=== PATIENT | female | born 1965 | race American Indian/Alaskan Native ===

== ENCOUNTER 2016-12-11 11:34 | Emergency (ER) | payer BC ==
[2016-12-11] MEDS ORDERED: Iohexol 240 (50 ml) PO STA (13:48)
[2016-12-11] MEDS ORDERED: Sodium Chloride 0.9% 1,000 ML IV STA (13:48)
[2016-12-11] MEDS ORDERED: Sodium Chloride 0.9% 1,000 ML ONE (14:08)
[2016-12-11 14:13] LABS: BASO % 0.4 % (0.0-2.0); EOS % 0.2 % (0.0-4.0); HEMATOCRIT 32.1 % (34.0-47.0); LYMPH # 1.8 K/uL (1.0-4.3); LYMPH % 23.1 % (20.0-40.0); MEAN CORPUSCULAR HEMOGLOBIN 19.6 pg (27.0-31.0); MEAN CORPUSCULAR HGB CONC 28.6 g/dL (33.0-37.0); MONO # 0.5 K/uL (0.0-0.8); MONO % 6.3 % (0.0-10.0); NRBC % 0.1 % (0.0-2.0); RED CELL DISTRIBUTION WIDTH 20.4 % (11.5-14.5); WHITE BLOOD COUNT 7.6 K/uL (4.8-10.8)
[2016-12-11 14:20] LABS: MEAN CELL VOLUME 68.4 fL (81.0-99.0)
[2016-12-11 14:21] LABS: CHLORIDE 103 mmol/L (98-107); POTASSIUM 3.9 mmol/L (3.6-5.2); SODIUM 141 mmol/L (132-148)
[2016-12-11 14:23] LABS: ALB/GLOB RATIO 1.2 (1.0-2.1); AST/SGOT 22 U/L (14-36); BILIRUBIN,TOTAL 0.8 mg/dL (0.2-1.3); CARBON DIOXIDE 26 mmol/L (22-30); GFR AFRICAN-AMERICAN > 60; TOTAL PROTEIN 7.7 g/dL (6.3-8.3)
[2016-12-11 14:24] LABS: ALKALINE PHOSPHATASE 77 U/L (38-126); ALT/SGPT 30 U/L (9-52); BLOOD UREA NITROGEN 15 mg/dL (7-17); CALCIUM 9.3 mg/dl (8.6-10.4); GLUCOSE,RANDOM 90 mg/dL (65-105)
[2016-12-11 14:26] LABS: RBC URINE 3 /hpf (0-3); URINE BACTERIA RARE (<OCC); URINE BILIRUBIN NEGATIVE (NEGATIVE); URINE BLOOD 1+ (NEGATIVE); URINE COLOR Yellow (YELLOW); URINE GLUCOSE (UA) NORMAL (Normal); URINE KETONE NEGATIVE (NEGATIVE); URINE LEUKOCYTE ESTERASE NEG Leu/uL (Negative); URINE PROTEIN NEGATIVE (NEGATIVE); URINE UROBILINOGEN NORMAL mg/dL (0.2-1.0); WBC URINE 1 /hpf (0-5)
[2016-12-11] MEDS ORDERED: Iohexol 240 (50 ml) ONE (15:02)
--- NOTE | 2016-12-11 15:34 | C.PDOC ---
History Of Present Illness 51 y/o female presents to the ED complaining of LLQ abdominal pain x 2-3 weeks. Patient reports history of diverticulitis in 2014 at which time she had a colostomy bag and then had it revered. She also reports hernia repaired twice in the same spot. Patient states that today she is experiencing pain in the same area. She notes that she called her surgeon who told her it was probably post operative pain. Patient states that the pain has been so severe the last couple of days that she called him again and he advised her to come to the ED. Patient denies any fever, chills, vomiting, diarrhea, urinary symptoms, back pain, chest pain, shortness of breath, vaginal bleeding, or other complaints. Time Seen by Provider: 12/11/16 12:42 Chief Complaint (Nursing): Abdominal Pain History Per: Patient History/Exam Limitations: no limitations Onset/Duration Of Symptoms: Days, Gradual, Persistent Current Symptoms Are (Timing): Still Present Location Of Pain/Discomfort: LLQ Radiation Of Pain To:: None Quality Of Discomfort: Burning Recent travel outside of the [place]: No Past Medical History Reviewed: Historical Data, Nursing Documentation, Vital Signs Vital Signs: Last Vital Signs Temp 98.6 F 12/11/16 17:50 Pulse 59 L 12/11/16 17:50 Resp 18 12/11/16 17:50 BP 168/82 H 12/11/16 17:50 Pulse Ox 100 12/11/16 18:24 - Medical History PMH: Anemia, Asthma, Diverticulitis, HTN Surgical History: Hernia Repair, Other Surgeries: colostomy - [facility] Procedures BYPASS SIGMOID COLON TO CUTANEOUS, OPEN APPROACH (08/22/15) COMPUTERIZED TOMOGRAPHY (CT SCAN) OF ABDOMEN AND PELVIS (08/22/15) DRAINAGE OF ABDOMINAL WALL WITH DRAIN DEV, OPEN APPROACH (08/22/15) DRAINAGE OF BLADDER WITH DRAINAGE DEVICE, VIA OPENING (01/20/16) RELEASE LARGE INTESTINE, OPEN APPROACH (08/22/15) RELEASE PERITONEUM, OPEN APPROACH (01/20/16) REPAIR ABDOMINAL WALL, OPEN APPROACH (01/20/16) RESECTION OF SIGMOID COLON, OPEN APPROACH (08/22/15) SUPPLEMENT ABDOMINAL WALL WITH SYNTH SUB, OPEN APPROACH (01/20/16) Family History: States: Unknown Family Hx - Social History Hx Tobacco Use: Yes (former smoker) Hx Alcohol Use: Yes (social) Hx Substance Use: No - Immunization History Hx Tetanus Toxoid Vaccination: No Hx Influenza Vaccination: No Hx Pneumococcal Vaccination: No Review Of Systems Except As Marked, All Systems Reviewed And Found Negative. Constitutional: Negative for: Fever, Chills Cardiovascular: Negative for: Chest Pain Respiratory: Negative for: Shortness of Breath Gastrointestinal: Positive for: Abdominal Pain (LLQ). Negative for: Vomiting, Diarrhea Genitourinary: Negative for: Dysuria, Hematuria, Vaginal Bleeding Musculoskeletal: Negative for: Back Pain Physical Exam - Physical Exam Appears: Non-toxic, No Acute Distress Skin: Normal Color, Warm, Dry Head: Atraumatic, Normacephalic Neck: Normal ROM, Supple Chest: Symmetrical Cardiovascular: Rhythm Regular Respiratory: Normal Breath Sounds, No Rales, No Rhonchi, No Wheezing Gastrointestinal/Abdominal: Soft, Tenderness (LLQ), No Guarding, No Rebound, No Hernia Back: Normal Inspection, No CVA Tenderness Extremity: Normal ROM, No Swelling Neurological/Psych: Oriented x3, Normal Speech, Normal Cognition ED Course And Treatment - Laboratory Results Result Diagrams: 12/11/16 14:08 12/11/16 14:08 O2 Sat by Pulse Oximetry: 100 (ra) Pulse Ox Interpretation: Normal - CT Scan/US CT Abd/Pelvis Other Rad Studies (CT/US): Read By Radiologist, Radiology Report Reviewed CT/US Interpretation: Accession No. : [id number]. Patient Name / ID : THELMA FERNANDEZ / [id number]. Exam Date : 12/11/2016 16:20:20 ( Approved ). Study Comment : Sex / Age : F / 51Y. Creator : TASH KAISER MD. Dictator : TASH KAISER MD. Arterial Embalmer : Sodium Chlorite Operator : TASH KAISER MD. Approver2 : Report Date : 12/11/2016 17:03:35. My Comment : . PROCEDURE: CT Abdomen and Pelvis with contrast. HISTORY: LLQ abdominal pain. COMPARISON: 2015 and 01/20/2016. TECHNIQUE: Multidetector CT scan of the abdomen and pelvis was performed after intravenous administration of contrast. Oral contrast was administered. Coronal and sagittal reformatted images were obtained. Contrast dose: Radiation dose: 100 mL Visipaque. Total exam DLP = 1074.96 mGy-cm. FINDINGS: LOWER THORAX: The lung bases are clear. LIVER: The liver is normal in size. There is homogeneous enhancement. There are small simple cysts, the largest in the left lobe measures 10 mm. GALLBLADDER AND BILE DUCTS: There are no calcified gallstones. PANCREAS: Normal in size and homogeneous perfusion. No gross lesion or ductal dilatation. SPLEEN: Normal in size without focal lesion. ADRENALS: Both adrenal glands are normal in size. No discrete nodule. KIDNEYS AND URETERS: Both kidneys are normal in size and there is homogeneous enhancement. There are small cortical cysts in both kidneys. VASCULATURE: Normal appearance. No aortic aneurysm. BOWEL: The small bowel loops are normal in caliber. There are postsurgical changes of partial sigmoid colon resection with reanastomosis. There is moderate amount of stool in the colon. There is no evidence of bowel dilatation or obstruction. The appendix is normal in caliber and there is intraluminal air without surrounding inflammatory changes. Abort. PERITONEUM: No free fluid. No free air. LYMPH NODES: Unremarkable. No enlarged lymph nodes. BLADDER: Decompressed. REPRODUCTIVE: There is an enlarged lobular uterus and fluid in the endometrial cavity. There are probable small simple cysts in both ovaries. BONES: No acute fracture. Within normal limits for the patient's age. OTHER FINDINGS: There is small fat containing umbilical hernia and probable scar tissue in the deep lower abdominal wall. IMPRESSION: 1. Status post partial sigmoid colon resection, no evidence of diverticulosis, bowel dilatation or obstruction. No CT evidence for acute appendicitis. 2. Lobular uterus enlarged for postmenopausal status and suspected are fibroids. Also noted is fluid in the endometrial cavity. Suspect small simple cysts in both ovaries. A dedicated pelvic ultrasound is recommended for further evaluation. Progress Note: CT Abd/Pelvis, blood work, urinalysis, and urine HCG were ordered. Patient was treated with IV fluids. On reevaluation, patient reports improvement of abdominal pain. Patient is resting comfortably, abdomen remains soft, and patient is tolerating PO. Patient feels comfortable going home. Patient discharged home and instructed to follow up with physician/clinic in 1- 2 days for further evaluation or return to ED if symptoms persist or worsen. Disposition - Disposition Disposition: HOME/ ROUTINE Disposition Time: 18:09 Condition: STABLE Additional Instructions: Follow up with PMD/DYNAMO REPAIRER within 1-2 days. Return to ED if feel worse. Instructions: Abdominal Pain (ED), Uterine Fibroids (ED) - Clinical Impression Clinical Impression: Abdominal pain, Fibroid uterus - PA / FINAL TESTER / Resident Statement MD/DO has reviewed & agrees with the documentation as recorded. - Scribe Statement The provider has reviewed the documentation as recorded by the Scribe (Zaira Mcpherson) All medical record entries made by the Scribe were at my direction and personally dictated by me. I have reviewed the chart and agree that the record accurately reflects my personal performance of the history, physical exam, medical decision making, and the department course for this patient. I have also personally directed, reviewed, and agree with the discharge instructions and disposition.
[2016-12-11] MEDS ORDERED: Iohexol 350mgl/ml 50 ML ONE (16:10)
[2016-12-11] MEDS ORDERED: Iohexol 350mg/ml 100 ML ONE (16:11)
--- NOTE | 2016-12-11 17:05 | CT ---
PROCEDURE: CT Abdomen and Pelvis with contrast HISTORY: LLQ abdominal pain COMPARISON: 01/23/2016 and 01/20/2016 TECHNIQUE: Multidetector CT scan of the abdomen and pelvis was performed after intravenous administration of contrast. Oral contrast was administered. Coronal and sagittal reformatted images were obtained. Contrast dose: Radiation dose: 100 mL Visipaque. Total exam DLP = 1074.96 mGy-cm. FINDINGS: LOWER THORAX: The lung bases are clear. LIVER: The liver is normal in size. There is homogeneous enhancement. There are small simple cysts, the largest in the left lobe measures 10 mm. GALLBLADDER AND BILE DUCTS: There are no calcified gallstones. PANCREAS: Normal in size and homogeneous perfusion. No gross lesion or ductal dilatation. SPLEEN: Normal in size without focal lesion. ADRENALS: Both adrenal glands are normal in size. No discrete nodule. KIDNEYS AND URETERS: Both kidneys are normal in size and there is homogeneous enhancement. There are small cortical cysts in both kidneys. VASCULATURE: Normal appearance. No aortic aneurysm. BOWEL: The small bowel loops are normal in caliber. There are postsurgical changes of partial sigmoid colon resection with reanastomosis. There is moderate amount of stool in the colon. There is no evidence of bowel dilatation or obstruction. The appendix is normal in caliber and there is intraluminal air without surrounding inflammatory changes. Abort PERITONEUM: No free fluid. No free air. LYMPH NODES: Unremarkable. No enlarged lymph nodes. BLADDER: Decompressed. REPRODUCTIVE: There is an enlarged lobular uterus and fluid in the endometrial cavity. There are probable small simple cysts in both ovaries. BONES: No acute fracture. Within normal limits for the patient's age. OTHER FINDINGS: There is small fat containing umbilical hernia and probable scar tissue in the deep lower abdominal wall. IMPRESSION: 1. Status post partial sigmoid colon resection, no evidence of diverticulosis, bowel dilatation or obstruction. No CT evidence for acute appendicitis. 2. Lobular uterus enlarged for postmenopausal status and suspected are fibroids. Also noted is fluid in the endometrial cavity. Suspect small simple cysts in both ovaries. A dedicated pelvic ultrasound is recommended for further evaluation.
[2016-12-11 17:29] VITALS: O2SAT 100
[2016-12-11 17:56] VITALS: BP 168/82; PULSE 59; RESP 18; TEMP 98.6
== END 2016-12-11 18:17 | disposition home or self-care (01) ==
LOC: C.ER 11:34
DX: D25.9 Leiomyoma of uterus, unspecified (principal); R10.32 Left lower quadrant pain
CPT/HCPCS: 74177; 80053; 81001; 83690; 84703; 85025; 99285; J7040; Q9966; Q9967

== ENCOUNTER 2017-03-20 09:11 | Day surgery (SDC) | payer BC, OTHER ==
[2017-03-18 08:14] VITALS: BMI 32.8
[2017-03-20 10:11] LABS: BASO % 0.6 % (0.0-2.0); EOS # 0.1 K/uL (0.0-0.7); EOS % 1.3 % (0.0-4.0); HEMOGLOBIN 10.1 g/dL (11.0-16.0); LYMPH # 1.6 K/uL (1.0-4.3); LYMPH % 30.8 % (20.0-40.0); MEAN CORPUSCULAR HEMOGLOBIN 22.4 pg (27.0-31.0); MEAN CORPUSCULAR HGB CONC 29.9 g/dL (33.0-37.0); MEAN PLATELET VOLUME 9.8 fL (7.2-11.7); MONO # 0.3 K/uL (0.0-0.8); MONO % 5.9 % (0.0-10.0); NEUT # 3.2 K/uL (1.8-7.0); NEUT % 61.4 % (50.0-75.0); RBC 4.51 Mil/uL (3.80-5.20); RED CELL DISTRIBUTION WIDTH 25.5 % (11.5-14.5); WHITE BLOOD COUNT 5.2 K/uL (4.8-10.8)
[2017-03-20 10:19] LABS: BLOOD UREA NITROGEN 7 mg/dL (7-17); GFR AFRICAN-AMERICAN > 60; GFR NON-AFRICAN AMERICAN > 60
[2017-03-20 10:20] LABS: CALCIUM 9.1 mg/dl (8.6-10.4); MEAN CELL VOLUME 75.1 fL (81.0-99.0)
[2017-03-20] MEDS ORDERED: Lactated Ringer's 1,000 ML IV ONE ×2 (10:46)
[2017-03-20] MEDS: cefOXitin IV 1 gm in Dextrose 1 GM/50 ML BAG IVPB ONE ×2 (10:47→11:00)
[2017-03-20] MEDS ORDERED: Midazolam 2 MG/2 ML VIAL ONE (10:55)
[2017-03-20] MEDS ORDERED: Propofol 10 mg/ml Inj (20 ML) ONE (10:55)
[2017-03-20 11:52] VITALS: O2SAT 100
[2017-03-20] MEDS: HYDROmorphone 0.5 mg/0.5 ml ISec IVP PRN ×2 (12:00→12:21)
--- NOTE | 2017-03-20 16:03 | PCM.SURG1 ---
Surgeon's Initial Post Op Note - Surgeon's Notes Surgeon: dr srivastava Registered Physical Therapist: none Type of Anesthesia: General LMA Anesthesia Administered By: dr srivastava Pre-Operative Diagnosis: 51 yr wit menometorrhagia/anemia Operative Findings: see the op reoprt Post-Operative Diagnosis: same Operation Performed: novasure/d&c, hyterscopy Specimen/Specimens Removed: ecc. emc Estimated Blood Loss: EBL {In ML}: 20 Blood Products Given: N/A Drains Used: No Drains Post-Op Condition: Good Date of Surgery/Procedure: 03/20/17 Time of Surgery/Procedure: 11:00
[2017-03-20 16:23] VITALS: BP 142/79; PULSE 64; RESP 20; TEMP 97.9
--- NOTE | 2017-03-22 09:13 | PCM.OP ---
Operative Report - Operative Report Date of Surgery/Procedure: 03/20/17 Time of Surgery/Procedure: 12:35 Surgeon: dr srivastava Garnett Machine Operator: moriah Anesthesia/Sedation: dr srivastava/ with LMA Pre-Operative Diagnosis: 51 yr with menometorrhagia/anemia Post-Operative Diagnosis: same Indication for Surgery: menomettorhagia/anemia. failed medical management Operative Findings: after informed consent sterle spec inserted. ut 6 week size. ant lip of cervoix grasped with ten. gentle dilation done. hystersvcopy introduced.currtae donee on all wall. small tissue. ecc done. cervix 4 cm. ut 10 cm. cavity lengh 6 cm.decision to novasure. width was 4.2 cm . after cavity assesementablation done for 120 sec. novasure removed.tenaculum removed. pt tolerated it the proced. no com Procedure/Operation Description: novasure andometral ablation/d&c, hysterscpy Estimated Blood Loss: 20 Sponge/Instrument Count: correct Complications: none Specimen: ecc. emc Discharge & Condition: stable
== END 2017-03-20 16:00 | disposition home or self-care (01) ==
LOC: C.OPSURG 09:11 → C.SDS 09:11
PROVIDERS: ATTEND Obstetrics & Gynecology
DX: N92.1 Excessive and frequent menstruation with irregular cycle (principal); D50.0 Iron deficiency anemia secondary to blood loss (chronic)
CPT/HCPCS: 36415; 58563; 80048; 84703; 85025; 86850; 86900; 88305; J0694; J1170; J2250; J2704; J3010; J7120

== ENCOUNTER 2017-07-11 23:19 | Emergency (ER) | payer BC, MEDICAID ==
[2017-07-11 23:20] VITALS: BMI 32.8
[2017-07-11 23:26] VITALS: TEMP 97.8; O2SAT 100
[2017-07-11] MEDS ORDERED: Albuterol-Ipratrop 3 mg / 0.5 (3 ml) UD ONE (23:38)
--- NOTE | 2017-07-11 23:59 | C.PDOC ---
History Of Present Illness 51 year old female presents to the ED with complaints of asthma exacerbation which began today. Patient states she is pending prescription from her pharmacy. Patient denies fever. Patient also complains of new onset of vertigo-like dizziness which began this afternoon. Patient notes symptoms are worse with looking sideways and with position change. Patient also reports nausea. Patient states she is s/p flu shot. CO ASTHMA EXAC SINCE TODAY. PENDING RX FROM PHARMACY. NO FEVER. ALSO CO NEW ONSET VERTIGO LIKE DIZZY SINCE THIS AFTERNOON. WORSE W LOOKING SIDEWAYS, POSITION CHANGE. +NAUSEA. S/P FLU SHOT EXAM MILD DIST NONTOXIC SP NEB HEENT NO NYSTAGMUS LUNGS OCC SCATTERED WHEEZE NO RETRACTION SPEAKING FULL SENTENCES NEURO INTACT Time Seen by Provider: 07/11/17 23:53 Chief Complaint (Nursing): Shortness Of Breath History Per: Patient History/Exam Limitations: no limitations Onset/Duration Of Symptoms: Hrs, Sudden Onset Current Symptoms Are (Timing): Still Present Additional History Per: Patient Past Medical History Reviewed: Historical Data, Nursing Documentation, Vital Signs Vital Signs: Last Vital Signs Temp 97.8 F 07/11/17 23:21 Pulse 76 07/12/17 01:11 Resp 18 07/12/17 01:11 BP 136/89 07/11/17 23:21 Pulse Ox 100 07/12/17 01:11 - Medical History PMH: Anemia, Diverticulitis, HTN Surgical History: Hernia Repair, - [facility] Procedures BYPASS SIGMOID COLON TO CUTANEOUS, OPEN APPROACH (08/22/15) COMPUTERIZED TOMOGRAPHY (CT SCAN) OF ABDOMEN AND PELVIS (08/22/15) DRAINAGE OF ABDOMINAL WALL WITH DRAIN DEV, OPEN APPROACH (08/22/15) DRAINAGE OF BLADDER WITH DRAINAGE DEVICE, VIA OPENING (01/20/16) RELEASE LARGE INTESTINE, OPEN APPROACH (08/22/15) RELEASE PERITONEUM, OPEN APPROACH (01/20/16) REPAIR ABDOMINAL WALL, OPEN APPROACH (01/20/16) RESECTION OF SIGMOID COLON, OPEN APPROACH (08/22/15) SUPPLEMENT ABDOMINAL WALL WITH SYNTH SUB, OPEN APPROACH (01/20/16) Family History: States: Unknown Family Hx - Social History Hx Tobacco Use: Yes (former smoker) Hx Alcohol Use: Yes (social) Hx Substance Use: No - Immunization History Hx Tetanus Toxoid Vaccination: No Hx Influenza Vaccination: No Hx Pneumococcal Vaccination: No Review Of Systems Constitutional: Negative for: Fever Respiratory: Positive for: Other (asthma exacerbation ) Gastrointestinal: Positive for: Nausea Neurological: Positive for: Dizziness Physical Exam - Physical Exam Appears: Non-toxic, Other (mild distress, s/p nebulizer ) Skin: Normal Color, Warm, Dry Head: Atraumatic, Normacephalic Eye(s): bilateral: Normal Inspection, Other (no nystagmus ) Ear(s): Bilateral: Normal Nose: Normal, No Discharge Oral Mucosa: Moist Throat: Normal, No Erythema, No Exudate Neck: Supple Chest: Symmetrical, No Deformity, No Tenderness Cardiovascular: Rhythm Regular, No Murmur Respiratory: No Rales, No Rhonchi, Wheezing (occasional, scattered wheezing ), Other (no retractions. speaking in full sentences ) Extremity: Normal ROM, Capillary Refill (less than 2 seconds ) Neurological/Psych: Oriented x3, Normal Speech, Normal Cognition Gait: Steady ED Course And Treatment ECG: Interpreted By Me, Viewed By Me ECG Rhythm: Sinus Rhythm ECG Interpretation: No Changes From Prior (12/2016) Rate From EC O2 Sat by Pulse Oximetry: 100 (on RA) Pulse Ox Interpretation: Normal Progress Note: EKG ordered and reviewed. Albuterol INH, Antivert PO, Zofran PO, and Prednisone PO administered. Reevaluation Time: :59 Reassessment Condition: Improved Disposition Counseled Patient/Family Regarding: Studies Performed, Diagnosis, Need For Followup, Rx Given - Disposition Referrals: YOUR,PMD [Other] Disposition: HOME/ ROUTINE Disposition Time: :59 Condition: IMPROVED Prescriptions: Meclizine [Antivert] 50 mg PO TID PRN #15 tab PRN Reason: Dizziness Ondansetron [Zofran Odt] 4 mg PO TID PRN #9 odt PRN Reason: Nausea/Vomiting predniSONE [Prednisone] 60 mg PO DAILY #12 tab Instructions: Vertigo (ED), Asthma (ED) Forms: [facility] (Burmese), Work Excuse - Clinical Impression Clinical Impression: Vertigo, Asthma exacerbation - Scribe Statement The provider has reviewed the documentation as recorded by the Scribe (Yumiko Catalan) Provider Attestation: All medical record entries made by the Scribe were at my direction and personally dictated by me. I have reviewed the chart and agree that the record accurately reflects my personal performance of the history, physical exam, medical decision making, and the department course for this patient. I have also personally directed, reviewed, and agree with the discharge instructions and disposition.
[2017-07-12] MEDS: Albuterol 0.083% Inhal Sol (2.5 mg/3 mL) UD INH SCH (00:17)
[2017-07-12] MEDS ORDERED: Albuterol 0.083% Inhal Sol (2.5 mg/3 mL) UD ONE (00:21)
[2017-07-12 01:12] VITALS: RESP 18
[2017-07-12 02:09] VITALS: BP 136/78; PULSE 70
--- NOTE | 2017-07-13 14:15 | CARD ---
APPROVED REPORT EKG Measurement Heart [id number] MD [id number] <Conclusion> Normal sinus rhythm Possible Left atrial enlargement Left ventricular hypertrophy Nonspecific T wave abnormality Prolonged QT Abnormal ECG
== END 2017-07-12 02:09 | disposition home or self-care (01) ==
LOC: C.ER 23:19
DX: J45.901 Unspecified asthma with (acute) exacerbation (principal); R42 Dizziness and giddiness; I10 Essential (primary) hypertension; Z87.891 Personal history of nicotine dependence

== ENCOUNTER 2017-07-15 00:14 | Emergency (ER) | payer MEDICAID ==
[2017-07-15 00:14] VITALS: BMI 32.8
[2017-07-15 01:01] LABS: BASO % 0.3 % (0.0-2.0); EOS % 0.1 % (0.0-4.0); HEMATOCRIT 36.6 % (34.0-47.0); LYMPH # 2.1 K/uL (1.0-4.3); LYMPH % 18.2 % (20.0-40.0); MEAN CELL VOLUME 85.8 fL (81.0-99.0); MEAN CORPUSCULAR HEMOGLOBIN 26.7 pg (27.0-31.0); MEAN CORPUSCULAR HGB CONC 31.1 g/dL (33.0-37.0); MONO # 0.6 K/uL (0.0-0.8); RED CELL DISTRIBUTION WIDTH 18.5 % (11.5-14.5); WHITE BLOOD COUNT 11.7 K/uL (4.8-10.8)
[2017-07-15] MEDS ORDERED: Sodium Chloride 0.9% 500 ML IV ONE (01:19)
[2017-07-15 01:29] LABS: CHLORIDE 107 mmol/L (98-107)
[2017-07-15 01:30] LABS: SODIUM 138 mmol/L (132-148)
[2017-07-15 01:31] LABS: POTASSIUM 4.4 mmol/L (3.6-5.2)
[2017-07-15 01:32] LABS: RBC URINE 315 /hpf (0-3); URINE BACTERIA RARE (<OCC); URINE BILIRUBIN NEGATIVE (NEGATIVE); URINE BLOOD 3+ (NEGATIVE); URINE CALCIUM OXALATE CRYSTALS MOD /hpf (<OCC); URINE COLOR Amber (YELLOW); URINE GLUCOSE (UA) NORMAL (Normal); URINE HYALINE CAST 0-2 /lpf (0-2); URINE KETONE TRACE mg/dL (NEGATIVE); URINE LEUKOCYTE ESTERASE TRACE Leu/uL (Negative); URINE PROTEIN 1+ mg/dL (NEGATIVE); WBC URINE 18 /hpf (0-5)
[2017-07-15 01:33] LABS: ALB/GLOB RATIO 1.1 (1.0-2.1); ALKALINE PHOSPHATASE 82 U/L (38-126); ALT/SGPT 27 U/L (9-52); AST/SGOT 28 U/L (14-36); BILIRUBIN,TOTAL 0.7 mg/dL (0.2-1.3); BLOOD UREA NITROGEN 17 mg/dL (7-17); CARBON DIOXIDE 17 mmol/L (22-30); GFR AFRICAN-AMERICAN > 60; GLUCOSE,RANDOM 120 mg/dL (65-105)
[2017-07-15 01:34] LABS: CALCIUM 9.7 mg/dl (8.6-10.4)
[2017-07-15] MEDS ORDERED: Iodixanol 320 MG/ML 100 ML BOTTLE IV ONE (01:46)
--- NOTE | 2017-07-15 01:46 | C.PDOC ---
History Of Present Illness 51 year old female presents to the ED for evaluation of left lower quadrant pain with intermittent episodes of rectal bleeding since earlier today. She admits to nausea but denies diarrhea, fever, chest pain, shortness of breath, dysuria/hematuria, vaginal bleeding/discharge. Patient has PMHx of perforated diverticulitis with abscess, s/p colostomy with reversal, as well as hernia with mesh repair (surgeon was Dr. Keating). Time Seen by Provider: 07/15/17 00:17 Chief Complaint (Nursing): Abdominal Pain History Per: Patient History/Exam Limitations: no limitations Onset/Duration Of Symptoms: Hrs Current Symptoms Are (Timing): Still Present Severity: Mild Location Of Pain/Discomfort: LLQ Associated Symptoms: Nausea. denies: Fever, Vomiting, Diarrhea, Chest Pain Abnormal Vaginal Bleeding: No Past Medical History Reviewed: Historical Data, Nursing Documentation, Vital Signs Vital Signs: Last Vital Signs Temp 98.5 F 07/15/17 05:27 Pulse 62 07/15/17 05:27 Resp 18 07/15/17 05:27 BP 136/77 07/15/17 05:27 Pulse Ox 99 07/15/17 05:27 - Medical History PMH: Anemia, Diverticulitis, HTN Surgical History: Hernia Repair, - [facility] Procedures BYPASS SIGMOID COLON TO CUTANEOUS, OPEN APPROACH (08/22/15) COMPUTERIZED TOMOGRAPHY (CT SCAN) OF ABDOMEN AND PELVIS (08/22/15) DRAINAGE OF ABDOMINAL WALL WITH DRAIN DEV, OPEN APPROACH (08/22/15) DRAINAGE OF BLADDER WITH DRAINAGE DEVICE, VIA OPENING (01/20/16) RELEASE LARGE INTESTINE, OPEN APPROACH (08/22/15) RELEASE PERITONEUM, OPEN APPROACH (01/20/16) REPAIR ABDOMINAL WALL, OPEN APPROACH (01/20/16) RESECTION OF SIGMOID COLON, OPEN APPROACH (08/22/15) SUPPLEMENT ABDOMINAL WALL WITH SYNTH SUB, OPEN APPROACH (01/20/16) Family History: States: No Known Family Hx - Social History Hx Tobacco Use: Yes (former smoker) Hx Alcohol Use: Yes (social) Hx Substance Use: No - Immunization History Hx Tetanus Toxoid Vaccination: No Hx Influenza Vaccination: No Hx Pneumococcal Vaccination: No Review Of Systems Except As Marked, All Systems Reviewed And Found Negative. Constitutional: Negative for: Fever, Chills Cardiovascular: Negative for: Chest Pain, Palpitations Respiratory: Negative for: Cough, Shortness of Breath Gastrointestinal: Positive for: Nausea, Abdominal Pain, Hematochezia. Negative for: Vomiting, Diarrhea, Constipation, Hematemesis, Rectal Pain Genitourinary: Negative for: Dysuria, Hematuria, Vaginal Discharge, Vaginal Bleeding Physical Exam - Physical Exam Appears: Well, Non-toxic, No Acute Distress Skin: Normal Color, Warm, Dry, No Pale Head: Normacephalic Eye(s): bilateral: Normal Inspection Oral Mucosa: Moist Cardiovascular: Rhythm Regular Respiratory: Normal Breath Sounds, No Rales, No Rhonchi, No Wheezing Gastrointestinal/Abdominal: Soft, Tenderness (mild LLQ TTP ), No Guarding, No Rebound, Other ((-) McBurney's) Rectal: Rectal Tone (normal), Blood Streaked Stool (soft stool tinged with blood ), Hemorrhoids (small external hemorrhoids, without bleeding/thrombosis/TTP ) Neurological/Psych: Oriented x3 ED Course And Treatment - Laboratory Results Result Diagrams: 07/15/17 00:58 07/15/17 00:58 O2 Sat by Pulse Oximetry: 98 (RA) Pulse Ox Interpretation: Normal - CT Scan/US CT A/P Other Rad Studies (CT/US): Read By Radiologist, Radiology Report Reviewed CT/US Interpretation: EXAM: CT Abdomen and Pelvis Without Intravenous Contrast. EXAM DATE/TIME: 07/15/2017 1:54 AM. CLINICAL HISTORY: 51 years old , female; Pain and signs and symptoms; Other: Rectal bleeding; Abdominal pain;. Generalized; Prior surgery; Surgery date: 6+ months; Surgery type: Sigmoid colostomy, exploratory. laparotomy [id number]. Reversal of colostomy, x5; Additional info: Llq, rectal bleeding. TECHNIQUE: Axial computed tomography images of the abdomen and pelvis without intravenous contrast. All CT. scans at this facility use one or more dose reduction techniques, viz.: automated exposure control;. ma/kV adjustment per patient size (including targeted exams where dose is matched to indication; i.e. head); or iterative reconstruction technique. Coronal and sagittal reformatted images were created and reviewed. COMPARISON: CT - PELVIS W/O CONTRAST 2016-01-25 11:10. FINDINGS : The liver, spleen, gallbladder, and kidneys and pancreas appear grossly normal on this noncontrast. study. Stomach and bowel: Surgical sutures are present within the sigmoid colon and within left lower. quadrant small bowel. There is stool within the anastomotic small bowel loop. There is no wall thickening or stranding in the surrounding fat Stranding in the subcutaneous fat of the left anterior. pelvis at the site of the patient's prior colostomy. A loop of small bowel herniates in between the. abdominis rectus muscle and oblique muscles at the site of the prior ostomy however there is no. caliber change to suggest obstruction. Appendix: A normal appendix is identified images 128 through 142, coronal images 59 through 69. Reproductive: There is a large 3.5 x 2.7 cm cystic structure in the left adnexa presumably ovarian in. origin. There is a tubular cystic structure just superiorly, possibly representing hydrosalpinx. Evaluation is suboptimal on this exam. Pelvic ultrasound could be performed for further evaluation. IMPRESSION: Cystic structures in the left adnexa, likely of ovarian and tubal origin as discussed above. Pelvic. ultrasound recommended for further evaluation. Evidence of surgery in the sigmoid colon as described above. Progress Note: Plan: Blood work, UA, Upreg, CT scan abd/pelvis ordered and reviewed. Patient given IV NS bolus, did not want pain medication. CT scan showed left adnexal cystic lesion and US recommended. Transvaginal US ordered and reviewed - showed left sided hydrosalpinx, ovarian cysts, uterine fibroids. Patient given doxycycline to cover for infectious causes of hydrosalpinx. Suspect rectal bleeding is due to internal hemorrhoids I am unable to visualize , since patient has nonbleeding external hemorroids and CT scan shows unremarkable bowels. Reevaluation Time: 05:25 Reassessment Condition: Improved (Patient reassessed, is resting comfortably, in no pain/distress. On exam, abdomen is soft and nontender. Patient given Rx for doxycycline and instructed to follow up with her fire operations forester within 1 week, as well as PMD in 1-2 days. Copies of all labs/studies given to patient to being to her doctors. She understands she should return to ED if symptoms worsen.) - Physician Consult Information Physician Contacted: Mara Juan Boss Outcome Of Conversation: Discussed US findings with fire operations forester Dr. Boss, recommends PO antibiotics (doxycycline) and follow up with fire operations forester. Medical Decision Making Medical Decision Making: differential diagnoses considered: hemorrhoids (externla vs internal), diverticulitis, diverticulosis, colitis, colon CA, ovarian cysts, ovarian torsion, ectopic , ovarian CA, tuboovarian abscess, hydrosalpinx, STD/ cervicitis Disposition Counseled Patient/Family Regarding: Studies Performed, Diagnosis, Need For Followup, Rx Given - Disposition Referrals: Ayaz Perez DO [Staff Provider] - Disposition: HOME/ ROUTINE Disposition Time: 05:25 Condition: STABLE Additional Instructions: FOLLOW UP WITH YOUR DOCTOR IN 1-2 DAYS FOLLOW UP WITH YOUR CONFIGURATION MANAGEMENT ADMINISTRATOR WITHIN 1 WEEK FOR FURTHER EVALUATION OF YOUR HYDROSALPINX TAKE ANTIBIOTICS UNTIL FINISHED RETURN TO ER IF SYMPTOMS WORSEN Prescriptions: Doxycycline Monohydrate 100 mg PO BID #14 tablet Instructions: Ovarian Cyst (ED) Forms: [facility] (Omani), General Discharge Instructions Print Language: TAMAZIGHT - Clinical Impression Clinical Impression: Hydrosalpinx, Ovarian cyst, Uterine fibroid, Rectal bleeding, Hemorrhoid - Scribe Statement The provider has reviewed the documentation as recorded by the Madai Farias Provider Attestation: All medical record entries made by the Nicolibsarath were at my direction and personally dictated by me. I have reviewed the chart and agree that the record accurately reflects my personal performance of the history, physical exam, medical decision making, and the department course for this patient. I have also personally directed, reviewed, and agree with the discharge instructions and disposition.
--- NOTE | 2017-07-15 02:53 | CT ---
EXAM: CT Abdomen and Pelvis Without Intravenous Contrast EXAM DATE/TIME: 07/15/2017 1:54 AM CLINICAL HISTORY: 51 years old, female; Pain and signs and symptoms; Other: Rectal bleeding; Abdominal pain; Generalized; Prior surgery; Surgery date: 6+ months; Surgery type: Sigmoid colostomy, exploratory laparotomy [id number]. Reversal of colostomy, x5; Additional info: Llq, rectal bleeding TECHNIQUE: Axial computed tomography images of the abdomen and pelvis without intravenous contrast. All CT scans at this facility use one or more dose reduction techniques, viz.: automated exposure control; ma/kV adjustment per patient size (including targeted exams where dose is matched to indication; i.e. head); or iterative reconstruction technique. Coronal and sagittal reformatted images were created and reviewed. COMPARISON: CT - PELVIS W/O CONTRAST 2016-01-25 11:10 FINDINGS: The liver, spleen, gallbladder, and kidneys and pancreas appear grossly normal on this non-contrast study. Stomach and bowel: Surgical sutures are present within the sigmoid colon and within left lower quadrant small bowel. There is stool within the anastomotic small bowel loop. There is no wall thickening or stranding in the surrounding fat Stranding in the subcutaneous fat of the left anterior pelvis at the site of the patient's prior colostomy. A loop of small bowel herniates in between the abdominis rectus muscle and oblique muscles at the site of the prior ostomy however there is no caliber change to suggest obstruction. Appendix: A normal appendix is identified images 128 through 142, coronal images 59 through 69. Reproductive: There is a large 3.5 x 2.7 cm cystic structure in the left adnexa presumably ovarian in origin. There is a tubular cystic structure just superiorly, possibly representing hydrosalpinx. Evaluation is suboptimal on this exam. Pelvic ultrasound could be performed for further evaluation. IMPRESSION: Cystic structures in the left adnexa, likely of ovarian and tubal origin as discussed above. Pelvic ultrasound recommended for further evaluation. Evidence of surgery in the sigmoid colon as described above.
[2017-07-15 03:34] VITALS: TEMP 98.5
--- NOTE | 2017-07-15 05:03 | US ---
EXAM: US Pelvis, Transvaginal EXAM DATE/TIME: 07/15/2017 3:03 AM CLINICAL HISTORY: 51 years old, female; Pain; Pelvic pain; Additional info: Left adnexal pain, mass vs hydrosalpinx TECHNIQUE: Real-time transvaginal pelvic ultrasound (complete) with image documentation. Transvaginal imaging was used for better evaluation of the endometrium and adnexa. COMPARISON: CT - ABD PELVIS W/O PO OR IV CONT 2017-07-15 02:01 FINDINGS: The uterus measures 10 x 5 x 7 cm. There are 2 fibroids both of which measure approximately 2.5 cm in diameter, one being located in the fundus and the other in the posterior uterus. The endometrium measures 8 mm. The right ovary measures 3 x 2 x 3 cm and appears normal. The left ovary measures 5.5 x 3.6 x 4.5 cm and contains a 3.3 cm cyst and a 1.3 cm cyst. There is a tubular fluid filled structure measuring 5 cm in length adjacent to the left ovary felt to represent hydrosalpinx. Color flow and doppler vascular waveforms were demonstrated to both ovaries. There is no significant free fluid. IMPRESSION: Left ovarian cysts. Followup recommended to ensure resolution. Tubular fluid filled structure abutting the left ovary presumably hydrosalpinx. Fibroid uterus.
[2017-07-15 05:28] VITALS: BP 136/77; PULSE 62; RESP 18
[2017-07-17 09:17] VITALS: O2SAT 98
== END 2017-07-15 05:46 | disposition home or self-care (01) ==
LOC: C.ER 00:14
DX: K64.4 Residual hemorrhoidal skin tags (principal); D25.9 Leiomyoma of uterus, unspecified; N83.202 Unspecified ovarian cyst, left side; N70.11 Chronic salpingitis; K62.5 Hemorrhage of anus and rectum; I10 Essential (primary) hypertension; Z87.891 Personal history of nicotine dependence
CPT/HCPCS: 74176; 76830; 80053; 81001; 84703; 85025; 99285; G0328

== ENCOUNTER 2018-01-12 02:51 | Emergency (ER) | payer MEDICAID, OTHER ==
[2018-01-12 02:52] VITALS: BMI 32.8
[2018-01-12 03:11] VITALS: O2SAT 100
[2018-01-12] MEDS ORDERED: Albuterol 0.083% Inhal Sol (2.5 mg/3 mL) UD INH STA (03:25)
[2018-01-12] MEDS ORDERED: Albuterol-Ipratrop 3 mg / 0.5 (3 ml) UD ONE (03:25)
[2018-01-12 03:30] VITALS: RESP 16
[2018-01-12] MEDS ORDERED: Albuterol 0.083% Inhal Sol (2.5 mg/3 mL) UD ONE ×3 (03:35)
--- NOTE | 2018-01-12 03:35 | C.PDOC ---
History Of Present Illness 52 year old female with a past medical history for asthma reports she was visiting a friend who earned cats earlier today. Shortly after leaving, patient started having chest tightness and cough. Patient is allergic to mold, allergens and pet danders. Chief Complaint (Nursing): Cough, Cold, Congestion History Per: Patient History/Exam Limitations: no limitations Onset/Duration Of Symptoms: Hrs Current Symptoms Are (Timing): Still Present Location Of Pain: None Sick Contacts (Context): None Past Medical History Reviewed: Historical Data, Nursing Documentation, Vital Signs Vital Signs: Last Vital Signs Temp 97.8 F 01/12/18 05:20 Pulse 70 01/12/18 05:20 Resp 16 01/12/18 05:20 BP 150/85 01/12/18 05:20 Pulse Ox 100 01/12/18 05:20 - Medical History PMH: Anemia, Diverticulitis, HTN Denies: Chronic Kidney Disease Surgical History: Hernia Repair, - [facility] Procedures BYPASS SIGMOID COLON TO CUTANEOUS, OPEN APPROACH (08/22/15) COMPUTERIZED TOMOGRAPHY (CT SCAN) OF ABDOMEN AND PELVIS (08/22/15) DRAINAGE OF ABDOMINAL WALL WITH DRAIN DEV, OPEN APPROACH (08/22/15) DRAINAGE OF BLADDER WITH DRAINAGE DEVICE, VIA OPENING (01/20/16) RELEASE LARGE INTESTINE, OPEN APPROACH (08/22/15) RELEASE PERITONEUM, OPEN APPROACH (01/20/16) REPAIR ABDOMINAL WALL, OPEN APPROACH (01/20/16) RESECTION OF SIGMOID COLON, OPEN APPROACH (08/22/15) SUPPLEMENT ABDOMINAL WALL WITH SYNTH SUB, OPEN APPROACH (01/20/16) Family History: States: Unknown Family Hx - Social History Hx Tobacco Use: Yes (former smoker) Hx Alcohol Use: Yes (social) Hx Substance Use: No - Immunization History Hx Tetanus Toxoid Vaccination: No Hx Influenza Vaccination: No Hx Pneumococcal Vaccination: No Review Of Systems Except As Marked, All Systems Reviewed And Found Negative. Cardiovascular: Positive for: Chest Pain Respiratory: Positive for: Cough Physical Exam - Physical Exam Appears: No Acute Distress, Other (persistent cough ) Skin: Normal Color Head: Atraumatic, Normacephalic Eye(s): bilateral: Normal Inspection Ear(s): Bilateral: Normal Nose: Normal Oral Mucosa: Moist Throat: No Drooling, No Other (stridor) Neck: Normal, Supple Cardiovascular: Rhythm Regular Respiratory: Decreased Breath Sounds, Wheezing (inspiratory and expiratory wheezing) Gastrointestinal/Abdominal: Normal Exam, Soft, No Tenderness Extremity: Normal ROM Neurological/Psych: Normal Speech (patient speaking in partial sentences) Gait: Steady ED Course And Treatment O2 Sat by Pulse Oximetry: 100 (RA) Pulse Ox Interpretation: Normal Medical Decision Making Medical Decision Making: Time: 325 Impression: asthma exacerbation inhibited by pet exposure Plan: -- Albuterol 10 mg INH -- PredniSONE 60 mg PO -- EKG rate 62 with normal limits, do not expect ectocopy. Time: 442 -- Re-eval: patient is feeling much better. Breathing 100% on Room Air. Wheezes have resolved. Disposition - Disposition Referrals: [facility] [Outside] Disposition: HOME/ ROUTINE Disposition Time: 06:14 Condition: GOOD Prescriptions: predniSONE [predniSONE Tab] 20 mg PO DAILY #5 tab Instructions: Asthma in Adults, Medicines for Asthma Forms: [facility] (Icelandic) Print Language: HONG KONGER - Clinical Impression Clinical Impression: Asthma - Scribe Statement The provider has reviewed the documentation as recorded by the Madai Vanessa Provider Attestation: All medical record entries made by the Madai were at my direction and personally dictated by me. I have reviewed the chart and agree that the record accurately reflects my personal performance of the history, physical exam, medical decision making, and the department course for this patient. I have also personally directed, reviewed, and agree with the discharge instructions and disposition.
[2018-01-12 05:29] VITALS: BP 150/85; PULSE 70; TEMP 97.8
--- NOTE | 2018-01-13 18:25 | CARD ---
APPROVED REPORT EKG Measurement Heart [id number] <Conclusion> Normal sinus rhythm Possible Left atrial enlargement Left ventricular hypertrophy Nonspecific T wave abnormality Abnormal ECG
== END 2018-01-12 05:29 | disposition home or self-care (01) ==
LOC: C.ER 02:51
DX: J45.909 Unspecified asthma, uncomplicated (principal)